=== PATIENT | male | born 2000 | race Two or more races ===

== ENCOUNTER 2019-09-02 00:08 | Emergency (ER) | payer OTHER ==
[~2019-09-02] VITALS: Ht 170.2 cm; Wt 68.2 kg
[2019-09-02 01:10] LABS: APPEARANCE,URINE CLEAR (CLEAR); BILIRUBIN,URINE NEGATIVE (NEGATIVE); GLUCOSE, URINE (UA) NEGATIVE (NEGATIVE); KETONES,URINE NEGATIVE (NEGATIVE); LEUKOCYTE ESTERASE ,URINE NEGATIVE (NEGATIVE); NITRATE,URINE NEGATIVE (NEGATIVE); OCCULT BLOOD,URINE NEGATIVE (NEGATIVE); PROTEIN,URINE NEGATIVE (NEGATIVE)
[2019-09-02 01:54] VITALS: BP 116/59
[2019-09-02] MEDS ORDERED: AZITHROMYCIN 500 MG TABLET PO ONE (02:15)
[2019-09-02] MEDS ORDERED: CefTRIAXone SODIUM 1 GM/VIAL IM ONE (02:15)
[2019-09-02] MEDS ORDERED: LIDOCAINE/PF 1% 2 ML VIAL IM ONE (02:15)
== END 2019-09-02 02:30 | disposition home or self-care (01) ==
LOC: EMS 00:08
DX: N34.2 Other urethritis (principal)
CPT/HCPCS: 81003; 87491; 87591; 96372; 99283; J0696; J3490